=== PATIENT | male | born 1945 | race Two or more races ===

== ENCOUNTER → 2017-09-16 01:13 | Outpatient (CLI) | payer MEDICARE, SELFPAY ==
--- NOTE | 2017-09-16 11:40 | DI.REPORT_ITS ---
SYMPTOM/DIAGNOSIS: PAIN X 5 MONTHS S/P FALL RIGHT SHOULDER MRI: The study was carried out according to the usual protocol. There is a small anterior rim rent-type tear of the distal supraspinatus tendon. This is associated with a small amount of subacromial and subdeltoid bursitis. The infraspinatus is unremarkable. There is mild subscapularis tendinopathy. A moderate amount of fluid is present in the subcoracoid bursa which might be secondary to subscapularis tendinopathy from subcoracoid impingement or be related to the presence of glenohumeral joint effusion. The teres minor is unremarkable. The biceps appears intact. The muscles are unremarkable. A small quantity of glenohumeral effusion is present. There is a small amount of fluid in the subcoracoid bursa which may be secondary to subscapularis tendinopathy from subcoracoid impingement or be related to the presence of glenohumeral joint effusion. The cartilage is unremarkable. The glenoid labrum is unremarkable. Note is made of mild degenerative changes in the acromioclavicular joint with joint capsular hypertrophy impinging slightly upon the musculotendinous junction of the supraspinatus. SUMMARY: A small amount of anterior rim rent-type tear is noted involving the distal supraspinatus tendon. There is an associated small amount of subacromial and subdeltoid bursitis. Note is made of mild degenerative changes in the acromioclavicular joint with joint capsular hypertrophy impinging slightly on the musculotendinous junction of the supraspinatus tendon. A small glenohumeral joint effusion is present. There is a moderate amount of fluid present in the subcoracoid bursa which might be secondary to subscapularis tendinopathy from subcoracoid impingement or be related to the presence of a glenohumeral joint effusion.
--- NOTE | 2017-09-16 17:04 | DI.VRAD_ITS ---
EXAM: MR Right Upper Extremity Without Intravenous Contrast, Shoulder EXAM DATE/TIME: 09/16/2017 11:37 AM CLINICAL HISTORY: 72 years old, male; Pain; Shoulder; Right; Patient HX: Pain x's 5 months S/P fall TECHNIQUE: Multiplanar magnetic resonance images of the right shoulder without intravenous contrast. COMPARISON: No relevant prior studies available. FINDINGS: TENDONS: SUPRASPINATUS: There is a small anterior rim rent-type tear of the distal supraspinatus tendon as seen on image 5 of series 9 and image 7 of series 6. This is associated with a small amount of subacromial and subdeltoid bursitis. INFRASPINATUS: Unremarkable. SUBSCAPULARIS: Mild subscapularis tendinopathy. There is a moderate amount of fluid present in the subcoracoid bursa, which might be secondary to subscapularis tendinopathy from subcoracoid impingement or be related to the presence of the glenohumeral joint effusion. TERES MINOR: Unremarkable. BICEPS BRACHII, LONG HEAD: Unremarkable. LIGAMENTS: GLENOHUMERAL: Unremarkable. MUSCLES: Unremarkable. FLUID: A small glenohumeral joint effusion is present. There is a moderate amount of fluid present in the subcoracoid bursa, which might be secondary to subscapularis tendinopathy from subcoracoid impingement or be related to the presence of the glenohumeral joint effusion. CARTILAGE: Unremarkable. GLENOID LABRUM: Unremarkable. No tear. BONES/JOINTS: Mild degenerative change is seen in the acromioclavicular joint with joint capsular hypertrophy impinging slightly upon the musculotendinous junction of the supraspinatus, seen on image 5 of series 8. IMPRESSION: 1. There is a small anterior rim rent-type tear of the distal supraspinatus tendon as seen on image 5 of series 9 and image 7 of series 6. This is associated with a small amount of subacromial and subdeltoid bursitis. 2. Mild degenerative change is seen in the acromioclavicular joint with joint capsular hypertrophy impinging slightly upon the musculotendinous junction of the supraspinatus, seen on image 5 of series 8. 3. A small glenohumeral joint effusion is present. 4. There is a moderate amount of fluid present in the subcoracoid bursa, which might be secondary to subscapularis tendinopathy from subcoracoid impingement or be related to the presence of the glenohumeral joint effusion. Dictated and Authenticated by: Marlo Graham MD. Ordering:EMMA VICTOR MD
== END ==
PROVIDERS: PCP General Practice; Visit Provider General Practice
DX: S43.421D Sprain of right rotator cuff capsule, subsequent encounter (principal); M25.411 Effusion, right shoulder; M19.011 Primary osteoarthritis, right shoulder; M75.51 Bursitis of right shoulder
CPT/HCPCS: 73221

== ENCOUNTER 2018-07-27 09:47 | Outpatient (CLI) | payer MEDICARE, SELFPAY ==
[2018-07-27 11:27] LABS: Anion Gap 10.1 mmol/L (3-11); BUN 28 mg/dL (7-18); CO2 27.9 mmol/L (21.0-32.0); CREATININE 1.06 mg/dL (0.70-1.30); Chloride 106 mmol/L (98-107); Glucose 98 mg/dL (70-100); Potassium 4.1 mmol/L (3.5-5.1); Sodium 144 mmol/L (136-145)
== END 2018-07-27 10:07 ==
PROVIDERS: PCP General Practice; Visit Provider General Practice
DX: I10 Essential (primary) hypertension (principal); R79.89 Other specified abnormal findings of blood chemistry
CPT/HCPCS: 36415; 80051; 82947; 84520; 82565

== ENCOUNTER → 2021-05-07 08:50 | Outpatient (BNVA) | payer MEDICARE, SELFPAY | PROVIDERS: PCP Family Medicine; Referring Provider General Practice; Visit Provider Urology | DX: N40.1 Benign prostatic hyperplasia with lower urinary tract symptoms (principal); R35.1 Nocturia; R68.82 Decreased libido; N52.9 Male erectile dysfunction, unspecified; M62.89 Other specified disorders of muscle | CPT/HCPCS: 51798; 99205 ==

== ENCOUNTER → 2021-06-25 07:56 | Outpatient (BNVA) | payer MEDICARE, SELFPAY | PROVIDERS: PCP Family Medicine; Referring Provider Family Medicine; Visit Provider Urology | DX: N52.9 Male erectile dysfunction, unspecified (principal); R68.82 Decreased libido | CPT/HCPCS: 99214 ==

== ENCOUNTER → 2021-11-28 08:58 | Outpatient (BNVA) | payer MEDICARE, SELFPAY | PROVIDERS: PCP Family Medicine; Referring Provider Family Medicine; Visit Provider Urology | DX: R68.82 Decreased libido (principal) | CPT/HCPCS: 99442 ==

== ENCOUNTER → 2022-03-04 08:59 | Outpatient (BNVA) | payer MEDICARE, SELFPAY | PROVIDERS: PCP Family Medicine; Referring Provider Family Medicine; Visit Provider Urology | DX: N52.9 Male erectile dysfunction, unspecified (principal); E29.1 Testicular hypofunction | CPT/HCPCS: 99443 ==

== ENCOUNTER 2022-05-06 07:49 | Outpatient (CLI) | payer MEDICARE, SELFPAY | END 2022-05-06 07:50 | disposition home or self-care (01) | LOC: DI.CARD 07:50 | PROVIDERS: PCP Family Medicine; Visit Provider Internal Medicine Cardiovascular Disease | CPT/HCPCS: 93010 ==

== ENCOUNTER → 2022-05-06 11:02 | Outpatient (BNVA) | payer MEDICARE, SELFPAY | PROVIDERS: PCP Family Medicine; Referring Provider Family Medicine; Visit Provider Internal Medicine Cardiovascular Disease | DX: Z01.810 Encounter for preprocedural cardiovascular examination (principal); Z95.2 Presence of prosthetic heart valve | CPT/HCPCS: 93005; 99203; 99213 ==

== ENCOUNTER 2022-06-04 07:17 | Outpatient (CLI) | payer MEDICARE, SELFPAY ==
--- NOTE | 2022-06-04 06:00 | DI.RAD_ITS ---
Exam(s) XR PAIN CLINIC LUMBAR SP 2V EXAM: XR PAIN CLINIC LUMBAR SP 2V CLINICAL HISTORY: Dx: Lumbar Spondylosis. TECHNIQUE: Fluoroscopy was provided for the referring physician for guidance with performing pain cl inic injection procedure. COMPARISON: No exams were available for comparison FINDINGS: Please see procedure note for details. Fluoro time: 73 seconds RADIATION DOSE DELIVERED: evelyne Alonzo=15.01 mGy
[2022-06-04 07:25] VITALS: BP 132/75; PULSE 62; RESP 20; TEMP 36.6; O2SAT 96
[2022-06-04] MEDS: fentaNYL 100 MCG/2 ML VIAL IVP ×2 (08:20→08:29)
[2022-06-04] MEDS: Midazolam 2 MG/2 ML VIAL IVP (08:24)
[2022-06-04] MEDS: Lactated Ringers 500 ML 80 ML IV (08:25)
[2022-06-04 09:05] VITALS: BP 137/83; PULSE 68; RESP 16; O2SAT 97
--- NOTE | 2022-06-04 09:06 | PDOC.PAIN ---
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 The low back pain has returned. PROCEDURE: Radiofrequency Ablation of medial branches - Bilateral L3 L4 L5 and lateral branches of bilateral S1. Bandar De Souza was brought into the fluoroscopy suite and positioned into the prone position on the fluoroscopy table and allowed to adjust to a position of comfort. A grounding pad was placed on the left abdomen. The lumbar region was widely prepped with a chloraprep solution, allowed to air dry and draped in standard sterile surgical fashion. Local anesthesia was provided by 4 mL of 2 % Lidocaine delivered with a 25g needle. A 17g 100 mm radiofrequency introducer needle was placed to the planned anatomic targets guided with intermittent fluoroscopy with a perpendicular approach to terminally place at the junction of the superior articular process and the transverse process of the bilateral L4 L5, the base of the sacral ala on the bilateral for the L5 medial branch nerve and the area between base of the sacral ala to the S1 foramen bilaterally. The stylets were removed and radiofrequency probes with a 4mm active tip were then inserted. Needle tip position of the probes was verified in the AP, oblique, and lateral views. At each site, the medial branch nerve was stimulated at 2 Hz to a maximum 1-2 volts determined to finalize safe needle and electrode placement. The patient was awake and responsive during this portion of the procedure. Each target was anesthetized with 1-2 mL of 2 % Lidocaine for anesthesia for lesioning and then each target was lesioned at 80 degrees Celsius for 2 minutes and 30 seconds. Tissue impedences were noted to be between 250 and 500 Ohms. I then injected 1/4 cc of Depomedrol (40 mg/cc) followed by 1 cc of 0.5% Bupivacaine to each segmental sensory nerve. Electrodes and needles were then removed and bandages placed over the needle placement sites, the patient then returned to the supine position on a stretcher and transported to the recovery room without hemodynamic, neurologic, or allergic reactions. Fluoroscopic images were printed for hard copy recording and digitally archived. POST PROCEDURE EVALUATION: IMPRESSION: 1. Summary of procedure. Medication given is documented in the MAR. 2. The patient will be contacted in 1-3 weeks 3. Estimated Blood Loss: <5 mls 4. Fluoroscopy time: Documented in the EMR. Follow up plans and appointments were discussed with the Bandar . Post procedure instruction was given as documented in nursing documentation and having met discharge criteria, Bandar was discharged from the [facility]. COMMENTS: No apparent complications. Post-procedure pain: VAS= 0/10. If he receives at least 50% pain improvement and/or 50% functional improvement for at least 6 months, this procedure can be repeated. F/U with our office as needed. Je Gonzalez DO, MPH [facility]-Pain Management [facility]
[2022-06-04] MEDS: Bupivacaine 0.5% Pres-Free 10 ML VIAL IJ (09:12)
[2022-06-04] MEDS: Lidocaine 2% Pres-Free 5 ML VIAL IJ (09:18)
[2022-06-04] MEDS: methylPREDNISolone ACETATE 40 MG/ML VIAL IJ (09:18)
== END 2022-06-04 07:18 | disposition home or self-care (01) ==
LOC: PC 07:17
PROVIDERS: PCP Family Medicine; Visit Provider Preventive Medicine Occupational Medicine
DX: M47.817 Spondylosis without myelopathy or radiculopathy, lumbosacral region (principal); M54.50 Low back pain, unspecified
CPT/HCPCS: 64635; 64636; 72100; J1030; J2250; J3010

== ENCOUNTER → 2023-01-15 01:19 | Outpatient (CLI) | payer MEDICARE, SELFPAY ==
--- NOTE | 2023-01-15 09:05 | DI.MRI_ITS ---
Exam(s) MR LUMBAR SPINE WO EXAM: MR LUMBAR SPINE WO CLINICAL HISTORY: Worsening bilateral lower extremity claudication,lumbar spinal stenosis,m48. TECHNIQUE: Multiplanar multisequence MRI of the Lumbar spine was performed. COMPARISON: MR MRI - LUMBAR SPINE WO CONTRAST from 09/15/2016 FINDINGS: Bones: The last intervertebral disc space is designated the L5/S1 level for the numbering purpose of this ex amination. The vertebral body heights are well maintained. Alignment: Unremarkable. The marrow signal characteristics are unremarkable. Cord: The conus tip ends at the T12 level. It is of normal size and signal intensity. T12-L1: No focal disc herniation is present. No central spinal canal stenosis.No neural foraminal st enosis. L1-2:Mild loss of disc height. No focal disc herniation is present. No central spinal canal stenosi s.No neural foraminal stenosis. L2-3:Mild disc bulging and small endplate osteophytes.. No focal disc herniation is present. No cent ral spinal canal stenosis.Left neural foraminal stenosis. L3-4: :Broad-based disc osteophytes. Facet degenerative changes and prominent ligamentous hypertrophy causing severe central canal stenosis. Finding similar to prior. No focal disc herniation is present . Moderate left neural foraminal stenosis. L4-5: Small endplate osteophytes eccentric toward the right causing moderate right neural foraminal n arrowing. Tiny right central disc protrusion without definite nerve root impingement. The facet degen erative changes and ligamentous hypertrophy combining to produce mild central canal stenosis. This ap pears worse than the prior exam. L5-S1: Severe loss of disc height. Broad-based disc osteophytes. Mild facet degenerative changes. No focal disc herniation is present. No central spinal canal stenosis.Moderate bilateral neural forami nal stenosis. The visualized SI joints and sacrum are unremarkable. Soft tissues: The paraspinal soft tissues are unremarkable. IMPRESSION: Stable severe central canal stenosis at L3-4 secondary to combination of degenerative changes. Mild central canal stenosis now present at L4-5. Tiny right paracentral disc protrusion at this level without definite nerve root impingement.. Multilevel neural foraminal narrowing. DATA REPOSITORY:
== END ==
PROVIDERS: PCP Family Medicine; Visit Provider Preventive Medicine Occupational Medicine
DX: M48.061 Spinal stenosis, lumbar region without neurogenic claudication (principal)
CPT/HCPCS: 72148

== ENCOUNTER 2023-02-26 10:53 | Outpatient (CLI) | payer MEDICARE, SELFPAY ==
[2023-02-26 11:03] VITALS: BP 161/85; PULSE 69; RESP 20; TEMP 36.7; O2SAT 97
--- NOTE | 2023-02-26 11:30 | DI.RAD_ITS ---
Exam(s) XR PAIN CLINIC LUMBAR SP 2V EXAM: XR PAIN CLINIC LUMBAR SP 2V CLINICAL HISTORY: Dx: Lumbar Radiculopathy. TECHNIQUE: Fluoroscopy was provided for the referring physician for guidance with performing pain cl inic injection procedure. COMPARISON: No exams were available for comparison FINDINGS: Please see procedure note for details. Fluoro time: 14.8 seconds RADIATION DOSE DELIVERED: Ka,r=4.11 mGy
[2023-02-26 11:32] VITALS: BP 163/78; PULSE 66; RESP 19; O2SAT 100
[2023-02-26] MEDS: methylPREDNISolone ACETATE 80 MG/ML VIAL IJ (11:34)
[2023-02-26] MEDS: Omnipaque 240 MG/ML 50 ML BTL IJ (11:34)
[2023-02-26] MEDS: Epidural Tray 1 EACH MC (11:38)
--- NOTE | 2023-02-26 13:18 | PDOC.PAIN ---
Date of service: 02/26/23 Time of Service: 12:00 Pain Managment Procedure Note Procedure Note Procedure Note: PROCEDURE NOTE LUMBAR EPIDURAL STEROID INJECTION Date of Service: February 26, 2023 Patient:?Bandar De Souza? Provider: Je Carson DO, MPH Bandar De Souza has been referred to the [facility] for a lumbar epidural steroid injection. Pre-operative diagnosis: Lumbosacral Radiculopathy Post-operative diagnosis: Same Pre-Procedure Pain: VAS= 10 /10 Comments: I previously evaluated him in the office. His symptoms are the same. Bandar was interviewed and the medical record was reviewed.? There were no medical, pharmacologic, radiographic or other structural contraindications to attempting fluoroscopically guided Lumbar epidural steroid injection.? Risks, potential side effects, indications, and potential benefits of the procedure were reviewed with Bandar.? Questions and concerns were addressed.? After it was clear that Bandar was fully informed about the procedure, the printed consent form was signed by the patient and myself.? Bandar was placed in the prone position on the fluoroscopy table and automated blood pressure cuff and pulse oximeter applied. The skin entry point for entering/approaching the epidural space for the lumbar epidural steroid injection was marked. Following thorough chlorhexadine preparation of the skin and draping and 1% lidocaine infiltration of the skin entry point and subcutaneous tissues, an 18 gauge Touhy needle was placed and advanced under fluoroscopic guidance and with loss of resistance technique into the L5-S1 epidural space. Needle tip placement and depth were aided and confirmed by fluoroscopy. There was no paresthesia or return of blood or CSF through the needle. 1 mls of Omnipaque 240 was injected with clear epidural spread confirmed with fluoroscopy. 80 mg of Depo-Medrol was? injected. This was followed by 1 ml of preservative-free normal saline to flush the steroid out of the needle. There was no unusual discomfort expressed by Bandar. The needle was withdrawn without difficulty. (49 mls of Omnipaque was wasted) Bandar was observed and was without hemodynamic, neurologic, or allergic reactions.? Fluoroscopic images were digitally archived. Bandar's vital signs were stable throughout the procedure and were as recorded in nursing records. Follow up plans and appointments were discussed with Bandar. Post procedure instruction was given as documented in nursing records and having met discharge criteria Bandar was discharged from the [facility] Management Center. COMMENTS: No apparent complications. Post-procedure pain: VAS= 0/10. Bandar to contact [facility] as needed. If at least 50% improvement in pain and/or function for at least 3 months is achieved, this procedure can be repeated. I personally performed this entire procedure. JE CARSON DO, MPH ABP[employer]-subspecialty board certification in Pain Medicine [facility]-Center for Pain Management
== END 2023-02-26 10:54 | disposition home or self-care (01) ==
LOC: PC 10:53
PROVIDERS: PCP Family Medicine; Visit Provider Preventive Medicine Occupational Medicine
DX: M54.50 Low back pain, unspecified (principal); M54.17 Radiculopathy, lumbosacral region
CPT/HCPCS: 123; 62323; 72100; 00123; J1040; Q9967

== ENCOUNTER 2023-05-05 08:02 | Outpatient (CLI) | payer MEDICARE, SELFPAY ==
--- NOTE | 2023-05-05 08:00 | RT.EKG_ITS ---
APPROVED REPORT Exam: Resting ECG Reason for Exam: HTN, s/p AVR Patient Location: O HR:59 bpm ECG Measurements Heart Rate 59 AXIS WI [id number] P [id number] QRSd 114 QRS -44 QT 459 T 74 QTc 455 Conclusion Sinus rhythm with atrial premature beats Artifact/poor baseline Left ventricular hypertrophy...multiple LVH criteria Left axis,consider LAFB
== END 2023-05-05 08:03 | disposition home or self-care (01) ==
LOC: DI.CARD 08:03
PROVIDERS: PCP Family Medicine; Visit Provider Internal Medicine Cardiovascular Disease
DX: Z95.2 Presence of prosthetic heart valve (principal)
CPT/HCPCS: 93010

== ENCOUNTER → 2023-05-05 10:47 | Outpatient (BNVA) | payer MEDICARE, SELFPAY | PROVIDERS: PCP Family Medicine; Referring Provider Family Medicine; Visit Provider Internal Medicine Cardiovascular Disease | DX: I51.7 Cardiomegaly (principal); Z95.2 Presence of prosthetic heart valve | CPT/HCPCS: 93005; 99213 ==

== ENCOUNTER 2023-05-06 08:08 | Outpatient (CLI) | payer MEDICARE, SELFPAY ==
--- NOTE | 2023-05-06 06:00 | DI.RAD_ITS ---
Exam(s) XR PAIN CLINIC LUMBAR SP 2V EXAM: XR PAIN CLINIC LUMBAR SP 2V CLINICAL HISTORY: DX: Lumbar spondylosis. TECHNIQUE: Fluoroscopy was provided for the referring physician for guidance with performing pain cl inic injection procedure. COMPARISON: No exams were available for comparison FINDINGS: Please see procedure note for details. Fluoro time: 65.6 seconds RADIATION DOSE DELIVERED: evelyne Alonzo=14.58 mGy
[2023-05-06 08:30] VITALS: BP 155/86; PULSE 73; RESP 20; TEMP 36.9; O2SAT 97
[2023-05-06] MEDS: Midazolam 2 MG/2 ML VIAL IVP (09:15)
[2023-05-06] MEDS: fentaNYL 100 MCG/2 ML VIAL IVP (09:15)
--- NOTE | 2023-05-06 09:50 | PDOC.PAIN_ITS ---
Date of service: 05/06/23 Time of Service: 09:50 Pain Managment Procedure Note Procedure Note Procedure Note: PROCEDURE NOTE BILATERAL LUMBAR RADIOFREQUENCY ABLATION Date of Service: May 06, 2023 Patient:? Bandar De Souza? Provider:? Je Carson DO, MPH Bandar De Souza has been referred to the [facility] for Bilateral Lumbar Radiofrequency Ablation with the Light Chaser Animations Machine.? Pre Operative Diagnosis: Lumbosacral Spondylosis without Myelopathy Post Operative Diagnosis: Same Pre procedure pain; VAS= 10/10 with activities Comments: He has had this procedure numerous times. His last RFA gave him >9 months of >50% pain relief. PROCEDURE: Radiofrequency Ablation of medial branches - bilateral L3, L4, L5 and lateral branches of bilateral S1. Bandar?was interviewed and the medical record was reviewed.? There were no medical, pharmacologic, radiographic or other structural contraindications to attempting fluoroscopically guided BILATERAL Lumbar Radiofrequency Ablation.?Risks and expected side effects as well as potential benefit of the procedure were reviewed with Bandar, and the patient's voiced concerns were addressed.? The printed consent form was signed.? Standard time-out procedure was performed. Bandar was brought into the fluoroscopy suite and positioned into the prone position on the fluoroscopy table and allowed to adjust to a position of comfort. A grounding pad was placed on the left abdomen. The sterile field was prepared using chlorhexidine preparation of the skin and sterile draping. Local anesthesia superficial and deep was provided by local infiltration of 2% lidocaine. A 17g 100 mm radiofrequency introducer needle was placed to the planned anatomic targets guided with intermittent fluoroscopy with a perpendicular approach to terminally place at the junction of the superior articular process and the transverse process of the bilateral L4, L5, the base of the sacral ala on the bilateral for the L5 medial branch nerve and the area between base of the sacral ala to the S1 foramen bilaterally. The stylets were removed and radiofrequency probes with a 4mm active tip were then inserted. Needle tip position of the probes was verified in the AP, oblique, and lateral views. At each site, the medial branch nerve was stimulated at 2 Hz to a maximum 1-2 volts determined to finalize safe needle and electrode placement. The patient was awake and responsive during this portion of the procedure. Each target was anesthetized with 1-2 mL of 2 % Lidocaine for anesthesia for lesioning and then each target was lesioned at 80 degrees Celsius for 2 minutes and 30 seconds. Tissue impedances were noted to be between 250 and 500 Ohms. I next injected 1/4 cc of Depomedrol (40 mg/cc) followed by 1 cc of 0.5% Bupivacaine. There was no unusual discomfort expressed by Bandar. The needles were withdrawn without difficulty and bandages placed over the needle placement sites, the patient was observed and was without hemodynamic, neurologic, or allergic reactions. Fluoroscopic images were digitally archived. POST PROCEDURE EVALUATION: IMPRESSION: 1. Summary of procedure. Medication given is documented in the MAR. 2. Follow up plan: Bandar to contact [facility] as needed.?This procedure may be repeated if the patient achieves at least 50% improvement in pain/function for at least 6 months. 3. Estimated Blood Loss: <5 mls 4. Fluoroscopy time: Documented in the EMR. Follow up plans and appointments were discussed with the Bandar. Post procedure instruction was given as documented in nursing documentation and having met discharge criteria, Bandar was discharged from the [facility]. COMMENTS: No apparent complications. Post-procedure pain: VAS= 1/10. I personally completed the entire procedure. JE CARSON DO, MPH [employer] - Subspecialty board certification in Pain Medicine [facility] [facility]
[2023-05-06] MEDS: Nerve Block Tray 1 EACH MC (09:57)
[2023-05-06] MEDS: Bupivacaine 0.5% Pres-Free 10 ML VIAL IJ (09:57)
[2023-05-06] MEDS: Lidocaine 2% Pres-Free 5 ML VIAL IJ (09:58)
[2023-05-06] MEDS: methylPREDNISolone ACETATE 40 MG/ML VIAL IJ (09:58)
[2023-05-06] MEDS: Lactated Ringers 500 ML 80 ML IV (09:59)
[2023-05-06 10:02] VITALS: BP 148/77; PULSE 65; RESP 14; O2SAT 97
== END 2023-05-06 08:09 | disposition home or self-care (01) ==
LOC: PC 08:08
PROVIDERS: PCP Family Medicine; Visit Provider Preventive Medicine Occupational Medicine
DX: M54.50 Low back pain, unspecified (principal); M47.817 Spondylosis without myelopathy or radiculopathy, lumbosacral region
CPT/HCPCS: 00123; 64635; 64636; 72100; J0665; J1030; J2250; J3010

== ENCOUNTER 2024-01-14 09:44 | Outpatient (CLI) | payer MEDICARE, SELFPAY ==
--- NOTE | 2024-01-14 06:45 | DI.RAD_ITS ---
Exam(s) XR PAIN CLINIC FLUORO JOINT IN EXAM: XR PAIN CLINIC FLUORO JOINT IN CLINICAL HISTORY: Dx: Right Knee Osteoarthritis TECHNIQUE: 2D and realtime digital imaging was performed. CONTRAST MATERIAL: Refer to procedure report. COMPARISON: No exams were available for comparison FINDINGS: Fluoroscopy was provided for Dr. Gonzalez during the performance of a right genicular nerve block. Plea se refer to the procedure report for complete details. Ka,r=3.53 mGy IMPRESSION: RADIATION DOSE DELIVERED: 0.0 0.0 0
[2024-01-14 09:57] VITALS: BP 116/69; PULSE 67; RESP 18; TEMP 36.6; O2SAT 98
[2024-01-14 10:21] VITALS: O2SAT 97
[2024-01-14 10:30] VITALS: O2SAT 100
--- NOTE | 2024-01-14 10:42 | PDOC.PAIN ---
Date of service: 01/14/24 Time of Service: 10:42 Pain Managment Procedure Note Procedure Note Procedure Note: PROCEDURE NOTE RIGHT GENICULAR NERVE BLOCKS Date of Service: January 14, 2024 Patient: Bandar De Souza Provider: Je Carson DO, MPH Bandar De Souza has been referred to the Pain Management Center for Right genicular nerve block. Pre-operative diagnosis: Pain in right knee M25.561 Post-operative diagnosis: Same Pre-Procedure Pain: VAS=6/10 COMMENTS: I previously evaluated him in the clinic. His symptoms are unchanged. He is status-post right knee TKA. PROCEDURE: 1. Block of the Superolateral genicular branch from the vastus lateralis 2. Block of the Superomedial genicular branch from the vastus medialis 3. Block of the Inferomedial genicular branch from the saphenous nerve 4. Block of the Terminal branch of the nerve vastus intermedius Bandar was interviewed and the medical record reviewed. There were no medical, pharmacologic, radiographic or other structural contraindications to attempting fluoroscopically guided Right genicular nerve block. Risks and potential side effects as well as potential benefit of the procedure were reviewed with Bandar De Souza , and the patient's voiced concerns were addressed. After I believed that the patient was completely informed, the printed consent form was signed. Standard time-out procedure was performed. After a thorough Chlorhexadine preparation of the skin and draping the skin entry points for approaching Right superolateral genicular nerve, the superomedial genicular nerve, nerve of the vastus intermedius and the inferomedial genicular was identified under the most advantageous fluoroscopic view and marked. Next, 3.5 25G spinal needle was advanced to os at the location of the specific nerve root using fluoroscopic guidance. Next 0.5 cc of 0.5% Bupivacain was injected at each site. There was no unusual discomfort expressed by Bandar. The needles were withdrawn without difficulty. Bandar was observed and was without hemodynamic, neurologic, or allergic reactions.? Fluoroscopic images were digitally archived. Bandar's vital signs were stable throughout the procedure and were as recorded in the docflowsheet by the nursing staff. If given, dosages of intravenous drugs for anxiolysis and analgesia were documented in MAR. Follow up plans and appointments were discussed. Bandar was instructed to keep careful note of how the usual pain was modified by these injections. Specifically, Bandar was asked to keep a pain diary for the next 4 hours using a numeric pain scale of 0-10 and report these results. Post procedure instruction was given as documented in nursing documentation and having met discharge criteria, Bandar was discharged from the Pain Management Center. COMMENTS: No apparent complications. Post-procedure pain: VAS= 0/10. Bandar will call back with 0-4 hour post-procedure pain scores. I personally completed the entire procedure. JE CARSON DO, MPH [employer] - Subspecialty board certification in Pain Medicine [facility] Management
[2024-01-14] MEDS: Omnipaque 240 MG/ML 50 ML BTL IJ (10:48)
[2024-01-14] MEDS: Bupivacaine 0.5% Pres-Free 10 ML VIAL IJ (10:48)
== END 2024-01-14 09:45 | disposition home or self-care (01) ==
LOC: PC 09:44
PROVIDERS: PCP Family Medicine; Visit Provider Preventive Medicine Occupational Medicine
DX: M25.561 Pain in right knee (principal); M17.11 Unilateral primary osteoarthritis, right knee
CPT/HCPCS: 64454; 77002; J0665; Q9967

== ENCOUNTER 2024-01-28 07:04 | Outpatient (CLI) | payer MEDICARE, SELFPAY ==
[2024-01-28] VITALS (13 sets, daily range): BP systolic 109–142; BP diastolic 60–79; PULSE 52–74; RESP 8–20; TEMP 36.7; O2SAT 87–100
[2024-01-28] MEDS: fentaNYL 100 MCG/2 ML VIAL IVP ×3 (08:25→08:35)
[2024-01-28] MEDS: Midazolam 2 MG/2 ML VIAL IVP (08:25)
[2024-01-28] MEDS: methylPREDNISolone ACETATE 40 MG/ML VIAL IJ (09:08)
[2024-01-28] MEDS: Bupivacaine 0.5% Pres-Free 10 ML VIAL IJ (09:08)
[2024-01-28] MEDS: Nerve Block Tray 1 EACH MC (09:09)
[2024-01-28] MEDS: Lidocaine 2% Multi-Dose 20 ML VIAL IJ (09:09)
--- NOTE | 2024-01-28 09:51 | PDOC.PAIN ---
Date of service: 01/28/24 Time of Service: 09:00 Pain Managment Procedure Note Procedure Note Procedure Note: PROCEDURE NOTE RIGHT GENICULAR NERVE RADIOFREQUENCY ABLATION Date of Service: January 28, 2024 Patient: Bandar De Souza Provider: Kayleigh Carson DO, MPH Bandar De Souza has been [facility] for Right genicular nerve radiofrequency ablation with the [employer] machine. Pre-operative diagnosis: Pain in right knee M25.561 Post-operative diagnosis: Same Pre-Procedure Pain: VAS=7/10 Comments: Previous genicular nerve blocks to the Right knee. PROCEDURE: 1. Superolateral genicular branch from the vastus lateralis 2. Superomedial genicular branch from the vastus medialis 3. Inferomedial genicular branch from the saphenous nerve 4. (Optional) Terminal branch of the nerve vastus intermedius Bandar was interviewed and the medical record reviewed. There were no medical, pharmacologic, radiographic or other structural contraindications to attempting fluoroscopically guided Right genicular nerve radiofrequency ablation. Risks and potential side effects as well as potential benefit of the procedure were reviewed with Bandar De Souza , and the patient's voiced concerns were addressed. After I believed that the patient was completely informed, the printed consent form was signed. Standard time-out procedure was performed. Bandar DeS ouza was brought into brought to the procedure room and placed on the fluoroscopy table in a comfortable supine position and automated blood pressure cuff and pulse oximeter applied. A grounding pad was placed on the right ankle. The place for needle placement was obtained by manual palpation with radiographic confirmation. The skin entry points for approaching Right superolateral genicular nerve, the superomedial genicular nerve, nerve of the vastus intermedius and the inferomedial genicular was identified under the most advantageous fluoroscopic view and marked. Following thorough Chlorhexadine preparation of the skin and draping, 1% lidocaine infiltration of the skin entry point and subcutaneous tissues was accomplished using a 1.5 25G needle. Next, the 17G 50 mm radiofrequency cannula needle with a 4mm active tip was advanced to os at the location of the specific nerve roots (4) using fluoroscopic guidance. Next, motor testing was performed and no abnormal findings were found. Next, 1 cc of 2% Lidocaine was injected at each site after negative aspiration. The lesion was then created with 80 degrees Celsius for 2 minutes and 30 seconds each. 1/4 cc of Depo-Medrol (40 mg/cc) was then injected at each site followed by 1 cc of 0.5% Bupivacaine as the needle was withdrawn. There was no unusual discomfort expressed by Badnar. The needles were withdrawn without difficulty. Bandar was observed and was without hemodynamic, neurologic, or allergic reactions.? Fluoroscopic images were digitally archived. Bandar's vital signs were stable throughout the procedure and were as recorded in the docflowsheet by the nursing staff. If given, dosages of intravenous drugs for anxiolysis and analgesia were documented in MAR. POST PROCEDURE EVALUATION: IMPRESSION: 1. Medication given is documented in the MAR 2. Follow up plan: Bandar to contact [facility] as needed. This procedure may be repeated if the patient achieves at least 50% improvement in pain and/or function for at least 6 months. 3. Estimated Blood Loss: <5ml 4. Fluoroscopy time: Documented in the EMR Follow up plans and appointments were discussed with Bandar. Post procedure instruction was given as documented in nursing documentation and having met discharge criteria, Bandar was [facility] from the [facility]. This advanced procedure uses cooled radiofrequency energy to safely target the sensory nerves responsible for sending pain signals.1 A radiofrequency generator transmits a small current of Radiofrequency energy through an insulated electrode, or probe, placed within tissue. Ionic heating, produced by the friction of charged molecules, thermally deactivates the nerves responsible for sending pain signals to the brain. Radiofrequency energy heats and cools the tissue at the site of pain. Unlike other Radiofrequency procedures, Coolief circulates water through the device while heating nervous tissue to create a larger treatment area, increasing the opportunity to help with pain. This combination targets the pain-transmitting nerves without excessive heating, leading to pain relief. COMMENTS: No apparent complications. Post-procedure pain: VAS= 2/10. Almaguer WJ1, Taran SJ, Roderick JG, Jaxson JG, Richie MARINO, Savanna PH, Mariusz JW. Radiofrequency treatment relieves chronic knee osteoarthritis pain: a double-blind randomized controlled trial. Pain. 2011 Apr;152(3):481-7. doi: 10.1016/j.pain.2010.09.029. Cordelia S1, Reese ON2, Molina Y3, ?zl?lerden P2, Ayaan U1, Dennis ?m?rl? I. Which one is more effective for the clinical treatment of chronic pain in knee osteoarthritis: radiofrequency neurotomy of the genicular nerves or intra-articular injection? Int J Rheum Dis. 2016 Sep 20. I personally completed the entire procedure. KAYLEIGH CARSON DO, MPH ABPM&R - Subspecialty board certification in Pain Medicine [facility]
--- NOTE | 2024-01-28 18:00 | DI.RAD_ITS ---
Exam(s) XR PAIN CLINIC FLUORO JOINT IN EXAM: XR PAIN CLINIC FLUORO JOINT IN CLINICAL HISTORY: DX: Right Knee Osteoarthritis TECHNIQUE: 2D and realtime digital imaging was performed. CONTRAST MATERIAL: Refer to procedure report. COMPARISON: No exams were available for comparison FINDINGS: Fluoroscopy was provided for Dr. Gonzalez during the performance of a right genicular nerve radiofrequen cy ablation. Please refer to the procedure report for complete details. Ka,r=4.48 mGy IMPRESSION: RADIATION DOSE DELIVERED: 0.0 0.0 0
== END 2024-01-28 14:48 | disposition home or self-care (01) ==
LOC: PC 07:04
PROVIDERS: PCP Family Medicine; Visit Provider Preventive Medicine Occupational Medicine
DX: M25.561 Pain in right knee (principal); M17.11 Unilateral primary osteoarthritis, right knee
CPT/HCPCS: 64624; 77002; J0665; J1010; J2003; J2250; J3010

== ENCOUNTER 2024-04-14 11:30 | Outpatient (CLI) | payer MEDICARE, SELFPAY ==
[2024-04-14] VITALS (14 sets, daily range): BP systolic 139–161; BP diastolic 57–95; PULSE 56–68; RESP 10–20; TEMP 36.8; O2SAT 94–98
[2024-04-14] MEDS: Midazolam 2 MG/2 ML VIAL IVP (13:00)
[2024-04-14] MEDS: fentaNYL 100 MCG/2 ML VIAL IVP ×2 (13:05→13:12)
[2024-04-14] MEDS: Lactated Ringers 500 ML 80 ML IV (13:13)
--- NOTE | 2024-04-14 13:35 | DI.RAD_ITS ---
Exam(s) XR PAIN CLINIC LUMBAR SP 2V EXAM: XR PAIN CLINIC LUMBAR SP 2V CLINICAL HISTORY: Dx: Lumbar Spondylosis. TECHNIQUE: Fluoroscopy was provided for the referring physician for guidance with performing pain cl inic injection procedure. COMPARISON: No exams were available for comparison FINDINGS: Please see procedure note for details. Fluoro time: 42 seconds RADIATION DOSE DELIVERED: evelyne Alonzo=9.48 mGy
[2024-04-14] MEDS: Bupivacaine 0.5% Pres-Free 10 ML VIAL IJ (13:38)
[2024-04-14] MEDS: Lidocaine 2% Multi-Dose 20 ML VIAL IJ (13:38)
[2024-04-14] MEDS: methylPREDNISolone ACETATE 40 MG/ML VIAL IJ (13:39)
[2024-04-14] MEDS: Nerve Block Tray 1 EACH MC (13:39)
--- NOTE | 2024-04-14 14:06 | PDOC.PAIN ---
Date of service: 04/14/24 Time of Service: 14:06 Pain Managment Procedure Note Procedure Note Procedure Note: PROCEDURE NOTE BILATERAL LUMBAR RADIOFREQUENCY ABLATION Date of Service: April 14, 2024 Patient:? Bandar De Souza? Provider:? Je Carson DO, MPH Bandar De Souza has been [facility] to the [facility] for Bilateral Lumbar Radiofrequency Ablation with the [employer] Machine.? 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 This pain has mostly returned. PROCEDURE: Radiofrequency Ablation of medial branches - bilateral L3, L4, L5 and lateral branches of bilateral S1. Bandar?was interviewed and the medical record was reviewed.? There were no medical, pharmacologic, radiographic or other structural contraindications to attempting fluoroscopically guided BILATERAL Lumbar Radiofrequency Ablation.?Risks and expected side effects as well as potential benefit of the procedure were reviewed with Bandar, and the patient's voiced concerns were addressed.? The printed consent form was signed.? Standard time-out procedure was performed. Bandar was brought into the fluoroscopy suite and positioned into the prone position on the fluoroscopy table and allowed to adjust to a position of comfort. A grounding pad was placed on the left abdomen. The sterile field was prepared using chlorhexidine preparation of the skin and sterile draping. Local anesthesia superficial and deep was provided by local infiltration of 2% lidocaine. A 17g 100 mm radiofrequency introducer needle was placed to the planned anatomic targets guided with intermittent fluoroscopy with a perpendicular approach to terminally place at the junction of the superior articular process and the transverse process of the bilateral L4, L5, the base of the sacral ala on the bilateral for the L5 medial branch nerve and the area between base of the sacral ala to the S1 foramen bilaterally. The stylets were removed and radiofrequency probes with a 4mm active tip were then inserted. Needle tip position of the probes was verified in the AP, oblique, and lateral views. At each site, the medial branch nerve was stimulated at 2 Hz to a maximum 1-2 volts determined to finalize safe needle and electrode placement. The patient was awake and responsive during this portion of the procedure. Each target was anesthetized with 1-2 mL of 2 % Lidocaine for anesthesia for lesioning and then each target was lesioned at 80 degrees Celsius for 2 minutes and 30 seconds. Tissue impedances were noted to be between 250 and 500 Ohms. There was no unusual discomfort expressed by Bandar. The needles were withdrawn without difficulty and bandages placed over the needle placement sites, the patient was observed and was without hemodynamic, neurologic, or allergic reactions. Fluoroscopic images were digitally archived. POST PROCEDURE EVALUATION: IMPRESSION: 1. Summary of procedure. Medication given is documented in the MAR. 2. Follow up plan: Bandar to contact [facility] needed.?This procedure may be repeated if the patient achieves at least 50% improvement in pain/function for at least 6 months. 3. Estimated Blood Loss: <5 mls 4. Fluoroscopy time: Documented in the EMR. Follow up plans and appointments were discussed with the Bandar. Post procedure instruction was given as documented in nursing documentation and having met discharge criteria, Bandar was discharged from the [facility]. This advanced procedure uses cooled radiofrequency energy to safely target the sensory nerves responsible for sending pain signals.1 A radiofrequency generator transmits a small current of Radiofrequency energy through an insulated electrode, or probe, placed within tissue. Ionic heating, produced by the friction of charged molecules, thermally deactivates the nerves responsible for sending pain signals to the brain. Radiofrequency energy heats and cools the tissue at the site of pain. Unlike other Radiofrequency procedures, Coolief circulates water through the device while heating nervous tissue to create a larger treatment area, increasing the opportunity to help with pain. This combination targets the pain-transmitting nerves without excessive heating, leading to pain relief. COMMENTS: No apparent complications. Post-procedure pain: VAS= 1/10. I personally completed the entire procedure. JE CARSON DO, MPH ABPM&R - Subspecialty board certification in Pain Medicine [facility] Coding Conscious Sedation used for procedure: Yes CPT Codes: Single Facet Joint, Lumbar/Sacral cool - 71399J (43756K18~G) bilateral Single Facet Joint, Lumbar/Sacral cool each add'l - 45130D (04207Q35~G) LT - LEFT SIDE, RT - RIGHT SIDE Moderate sedation; First 15 min - 55917 (84898) Additional Codes: Date of Service (15387) Date of service: 04/14/24
--- NOTE | 2024-04-14 14:09 | PDOC.PAIN2 ---
Review of Systems Medications/Allergies Allergies Allergy/AdvReac Type Severity Reaction Status Date / Time ibuprofen Allergy Intermediate diarrhea Verified 04/14/24 12:04 ketorolac Allergy Intermediate eye Verified 04/14/24 12:04 pressure and pain cefazolin AdvReac Intermediate Diarrhea Verified 04/14/24 12:04 Medications: Current Medications Bupivacaine HCl (Bupivacaine 0.5% Pres-Free 10 Ml Vial) 0 ml IJ DIRECTED DAQUAN Stop: 04/14/24 23:59 Last Admin: 04/14/24 13:38 Dose: 5 ml Bupivacaine HCl (Bupivacaine 0.5% Pres-Free 30 Ml Vial) 0 ml IJ DIRECTED DAQUAN Stop: 04/14/24 23:59 Fentanyl (Fentanyl 100 Mcg/2 Ml Vial) 0 mcg IVP DIRECTED DAQUAN Stop: 04/14/24 23:59 Last Admin: 04/14/24 13:12 Dose: 25 mcg Ringer's Solution () 500 mls @ 80 mls/hr IV INFUSION DAQUAN Stop: 04/14/24 23:59 Last Admin: 04/14/24 13:13 Dose: 80 mls/hr Lidocaine HCl (Lidocaine 2% Pres-Free 5 Ml Vial) 0 ml IJ DIRECTED DAQUAN Stop: 04/14/24 23:59 Lidocaine HCl (Lidocaine 2% Pres-Free 2 Ml Vial) 0 ml IJ DIRECTED DAQUAN Stop: 04/14/24 23:59 Lidocaine HCl (Lidocaine 2% Multi-Dose 20 Ml Vial) 20 ml IJ DIRECTED DAQUAN Stop: 04/14/24 23:59 Last Admin: 04/14/24 13:38 Dose: 15 ml Methylprednisolone Acetate (Methylprednisolone Acetate 40 Mg/Ml Vial) 0 mg IJ DIRECTED DAQUAN Stop: 04/14/24 23:59 Last Admin: 04/14/24 13:39 Dose: 80 mg Methylprednisolone Acetate (Methylprednisolone Acetate 80 Mg/Ml Vial) 0 mg IJ DIRECTED DAQUAN Stop: 04/14/24 23:59 Midazolam HCl (Midazolam 2 Mg/2 Ml Vial) 0 mg IVP DIRECTED DAQUAN Stop: 04/14/24 23:59 Last Admin: 04/14/24 13:00 Dose: 1 mg Miscellaneous (Nerve Block Tray) 1 each MC DIRECTED DAQUAN Stop: 04/14/24 23:59 Last Admin: 04/14/24 13:39 Dose: 1 each Sodium Chloride (Normal Saline Flush 10 Ml Syr) 0 ml IVP PRN PRN Stop: 04/14/24 23:59 Objective Exam Vitals and I&O: Vital Signs Temperature 36.8 C 04/14/24 12:17 Pulse 57 L 04/14/24 13:31 Pulse 58 L 04/14/24 13:31 Respiratory Rate 14 04/14/24 13:31 Blood Pressure 153/79 H 04/14/24 13:30 Blood Pressure Mean 106 04/14/24 13:30 Pulse Oximetry 95 04/14/24 13:31 Respiratory End-tidal CO2 9 04/14/24 13:30 Oxygen Delivery Method Room Air 04/14/24 12:17 Oxygen Flow Rate 0 04/14/24 12:17 Intake & Output 04/13/24 04/14/24 04/14/24 23:59 11:59 23:59 Weight 70.307 kg Ambulatory Orders ?Medication ?Instructions ?Recorded doxazosin 8 mg tablet 8 mg PO DAILY 05/07/21 famotidine 20 mg tablet 40 mg PO DAILY 05/07/21 amlodipine 5 mg tablet 5 mg PO DAILY 04/22/22 hydrochlorothiazide 12.5 mg tablet 12.5 mg PO DAILY 03/04/24 atorvastatin 20 mg tablet 20 mg PO DAILY 04/11/24 Assessment/Plan Assessment/Plan (1) Lumbosacral spondylosis without myelopathy: Assessment: Pre-procedure H&P The patient is here for a bilateral L3-L5 lumbar medial branch radiofrequency ablation No complications with sedation in the past. The plan is to use low doses of Fentanyl and Versed for this procedure Mallampati score: Class II Heart: RR&R Lungs: No wheezing and non-labored Skin: No issues at the areas of the proposed injection sites. Psych: No confusion. Alert and oriented Ok to proceed with the RFA completed with conscious sedation. Je Gonzalez DO, MPH ABPMR-Pain Management [facility]
== END 2024-04-14 11:31 | disposition home or self-care (01) ==
LOC: PC 11:30
PROVIDERS: PCP Family Medicine; Visit Provider Preventive Medicine Occupational Medicine
DX: M47.817 Spondylosis without myelopathy or radiculopathy, lumbosacral region (principal); M54.50 Low back pain, unspecified
CPT/HCPCS: 64635; 64636; 72100; J0665; J1010; J2003; J2250; J3010

== ENCOUNTER → 2024-05-03 10:44 | Outpatient (BNVA) | payer MEDICARE, SELFPAY | PROVIDERS: PCP Family Medicine; Visit Provider Internal Medicine Cardiovascular Disease | DX: Z95.2 Presence of prosthetic heart valve (principal) | CPT/HCPCS: 99213 ==

== ENCOUNTER 2024-05-27 00:14 | Outpatient (CLI) | payer MEDICARE, SELFPAY ==
--- NOTE | 2024-05-27 07:30 | DI.US_ITS ---
APPROVED REPORT EXAM: Comprehensive 2D, Doppler, and color-flow Echocardiogram Patient Location: Out-Patient A/C Tech: Marc Roper RDCS (AE) Indications: Check AVR Other Information Study Quality: Good Conclusion Normal left ventricular wall thickness and chamber size. Ejection fraction is 55 to 60%. Wall motio n is normal Normal right ventricular size and function Both atria are normal in size. Atrial septum is thin and hypermobile There is a bioprosthetic aortic valve. Peak gradient is 64, mean 38 mmHg. There is moderate aortic stenosis. Calculated aortic valve area is 1 cm??. There is trace aortic regurgitation Mitral annular calcification with mild regurgitation Mild tricuspid regurgitation. Estimated right ventricular systolic pressure is 24 mmHg Ascending aorta measures 3.89 cm Wall motion Left Ventricle The left ventricle is normal size. Left ventricular systolic function is normal. The left ventricular ejection fraction is within the normal range. There is normal left ventricular wall thickness. There is normal LV segmental wall motion. There is no ventricular septal defect visualized. LVEF is 55-60% . Right Ventricle The right ventricle is normal size. The right ventricular systolic function is normal. Atria The left atrium size is normal. The right atrium size is normal. 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 Aortic Valve Bioprosthetic aortic valve is present. Peak aortic valve gradient is 64 mmHg. mean aortic valve gradi ent is 38mmHg. Calculated AYESHA by the continuity equation is 1.0 cm2. Trace aortic regurgitation. Mitral Valve Moderate mitral annular calcification. No evidence of mitral valve stenosis. Mild mitral regurgitatio n. Tricuspid Valve The tricuspid valve is normal in structure. There is no tricuspid valve stenosis. Mild tricuspid regu rgitation. The RVSP is 24.0 mmHg. Pulmonic Valve The pulmonary valve is normal in structure. There is no pulmonic valvular stenosis. Mild pulmonic reg urgitation. Great Vessels The aortic root is normal in size. The ascending aorta is mildly dilated. Aortic arch is normal in ca liber. IVC is normal in size and collapses >50% with inspiration. Pericardium There is no pericardial effusion. 2D Dimensions IVSD d PLAX 0.91 cm M: 0.6-1.2 Ao Root d 3.13 cm M: 3.1 - 3.7 LVPW d PLAX 0.98 cm M: 0.6 - 1.2 Ao Asc Diam d 3.89 cm M: 2.6 - 3.4 LVID d PLAX 5.57 cm M: 4.2 - 5.8 LVDs 3.95 cm M: 2.5 - 4.0 LV EF Teichholz 55.2 % FS 29.05 % LV EDV (Teich) 151.7 mL LV ESV (Teich) 68.0 mL Stroke Vol Index (Teich) 45.73 M-Mode TAPSE 1.44 cm (M/F) >1.7 LV Volumes - Method of Disks (Wilks's) Single Plane 2D LV Volumes Biplane 2D LV Volumes LV EDV A4C 146.2 mL LV EDV BP 89.19 mL M: 62 - 150 LV ESV A4C 60.9 mL LV ESV BP 37.9 mL LVEF(%) A4C 58.3 % LVEF(%) BP 57.48 % M: 52 - 72 LV EDV A2C 44.1 mL LV EDV BP Index 48.47 mL/m2 M: 34 - 74 LV ESV A2C 20.2 mL SV BP LVEF(%) A2C 54.2 % SV Index LA Volume LA Length A4C 5.8 cm LA Length A2C LA Area A4C s 15.20 cm2 LA Area A2C s LA Vol A4C A-L 34.01 mL LA Vol A2C A-L LA Vol Biplane A-L LA Vol A4C MOD 34.4 mL LA Vol A2C MOD LA Vol BP MOD RA Volume RA Area A4C 11.4 cm2 RA ESV A4C (A-L) 26.2mL RA Vol/BSA A4C A-L RA Length A4C 4.2 cm RA ESV A4C (MOD) 23.8mL LV Diastology MV E Vmax 0.48 (0.4-1.3 m/s) MV A Vmax 0.85 (0.4-1.3 m/s) E/A Ratio 0.6 Aortic Valve AoV Vmax 4.21 m/s LVOT Vmax 1.27 m/s AoV Peak Grad 77.6 mmHg LVOT Peak Grad 6.5 mmHg AoV Area (Vmax) 0.97 cm2 LVOT VTI 0.334 m AoV VTI 1.108 m LVOT Mean Grad 3.6 mmHg AoV Mean Travis. 3.12 m/s LVOT SV 106.96 mL AoV Mean Grad 44.1 mmHg LVOT Diam s 2.00 cm AoV Area (VTI) 0.97 cm2 AV Regurg Peak Gr. 70.86 mmHg Velocity Ratio 0.30 AR Decel [place] 1.1m/sec2 AR DT 4209 msec AR PHT 1221 msec AR Vmax 4.59 m/s Mitral Valve MV DT 201 (160-240 msec) Tricuspid Valve RA Pressure 3.00 mmHg TR Vmax 2.29 m/s TR Peak Grad 21.0 mmHg RVSP (TR) 24.0 mmHg
== END 2024-05-27 00:34 ==
LOC: DI 00:14
PROVIDERS: PCP Family Medicine; Visit Provider Internal Medicine Cardiovascular Disease
DX: Z95.2 Presence of prosthetic heart valve (principal); I08.3 Combined rheumatic disorders of mitral, aortic and tricuspid valves
CPT/HCPCS: 93306

== ENCOUNTER 2024-08-18 08:33 | Outpatient (CLI) | payer MEDICARE, SELFPAY ==
--- NOTE | 2024-08-18 06:00 | DI.RAD_ITS ---
Exam(s) XR PAIN CLINIC LUMBAR SP 2V EXAM: XR PAIN CLINIC LUMBAR SP 2V CLINICAL HISTORY: Dx: Lumbar Radiculopathy. TECHNIQUE: Fluoroscopy was provided for the referring physician for guidance with performing pain clinic injection procedure. COMPARISON: No exams were available for comparison FINDINGS: Please see procedure note for details. Fluoro time: 17.2 seconds RADIATION DOSE DELIVERED: Ka,r=4.5 mGy
[2024-08-18 08:15] VITALS: BP 132/79; PULSE 55; RESP 18; TEMP 36.4; O2SAT 98
[2024-08-18 09:28] VITALS: PULSE 60; PULSE 64; RESP 18; O2SAT 96
[2024-08-18 09:29] VITALS: BP 162/76; PULSE 53; PULSE 60; RESP 12; O2SAT 98
[2024-08-18 09:30] VITALS: PULSE 53; PULSE 59; RESP 16; O2SAT 99
[2024-08-18 09:31] VITALS: BP 150/71; PULSE 53; PULSE 60; RESP 12; O2SAT 99
--- NOTE | 2024-08-18 09:40 | PDOC.PAIN ---
Date of service: 08/18/24 Time of Service: 09:40 Pain Managment Procedure Note Procedure Note Procedure Note: PROCEDURE NOTE LUMBAR EPIDURAL STEROID INJECTION Date of Service: August 18, 2024 Patient:?Bandar De Souza? Provider: Je Carson DO, MPH Bandar De Souza has been referred to the [facility] for a lumbar epidural steroid injection. Pre-operative diagnosis: Lumbosacral Radiculopathy ICD-10 M54.16 Post-operative diagnosis: Same Pre-Procedure Pain: VAS= 7 /10 Comments: I previously evaluated him in the office. His symptoms are unchanged. Bandar was interviewed and the medical record was reviewed.? There were no medical, pharmacologic, radiographic or other structural contraindications to attempting fluoroscopically guided Lumbar epidural steroid injection.? Risks, potential side effects, indications, and potential benefits of the procedure were reviewed with Bandar.? Questions and concerns were addressed.? After it was clear that Bandar was fully informed about the procedure, the printed consent form was signed by the patient and myself.? Bandar was placed in the prone position on the fluoroscopy table and automated blood pressure cuff and pulse oximeter applied. The skin entry point for entering/approaching the epidural space for the lumbar epidural steroid injection was marked. Following thorough chlorhexadine preparation of the skin and draping and 1% lidocaine infiltration of the skin entry point and subcutaneous tissues, an 18 gauge Touhy needle was placed and advanced under fluoroscopic guidance and with loss of resistance technique into the L5-S1 epidural space. Needle tip placement and depth were aided and confirmed by fluoroscopy. There was no paresthesia or return of blood or CSF through the needle. 1 mls of Omnipaque 240 was injected with clear epidural spread confirmed with fluoroscopy. 80 mg of Depo-Medrol was? injected. This was followed by 1 ml of preservative-free normal saline to flush the steroid out of the needle. There was no unusual discomfort expressed by Bandar. The needle was withdrawn without difficulty. (49 mls of Omnipaque was wasted) Bandar was observed and was without hemodynamic, neurologic, or allergic reactions.? Fluoroscopic images were digitally archived. Bandar's vital signs were stable throughout the procedure and were as recorded in nursing records. Follow up plans and appointments were discussed with Bandar. Post procedure instruction was given as documented in nursing records and having met discharge criteria Bandar was discharged from the [facility]. COMMENTS: No apparent complications. Post-procedure pain: VAS= 3/10. Bandar to contact [facility] as needed. If at least 50% improvement in pain and/or function for at least 3 months is achieved, this procedure can be repeated. I personally performed this entire procedure. JE CARSON DO, MPH ABPMR-subspecialty board certification in Pain Medicine [facility] Coding Conscious Sedation used for procedure: No CPT Codes: Inj Spine L/S w/Imaging - 22399 ([id number] ~G) Additional Codes: Date of Service (23979) Date of service: 08/18/24 Diagnoses: Lumbar radiculopathy
[2024-08-18] MEDS: Omnipaque 240 MG/ML 50 ML BTL IJ (09:47)
[2024-08-18] MEDS: methylPREDNISolone ACETATE 80 MG/ML VIAL IJ (09:47)
[2024-08-18] MEDS: Epidural Tray 1 EACH MC (09:47)
== END 2024-08-18 08:34 | disposition home or self-care (01) ==
LOC: PC 08:33
PROVIDERS: PCP Family Medicine; Visit Provider Preventive Medicine Occupational Medicine
DX: M54.50 Low back pain, unspecified (principal); M54.16 Radiculopathy, lumbar region
CPT/HCPCS: 62323; 72100; J1010; Q9967

== ENCOUNTER 2024-10-10 13:54 | Outpatient (REF) | payer MEDICARE, SELFPAY ==
[2024-10-10 14:18] LABS: Abs Immature Grans 0.07 10^3/uL (0.0-0.06); HCT 26.8 % (40.0-50.0); HGB 8.4 g/dL (13.5-17.5); Immature Grans % 1.1 %; MCH 27.0 pg (27.0-33.0); MCHC 31.3 % (32.0-36.0); MCV 86 fL (80-95); MPV 9.0 fL (8.0-11.0); Platelet Count 188 10^3/uL (130-400); RBC 3.11 10^6/uL (4.36-5.78); RDW 16.0 % (11.8-14.1); RDW-SD 50.1 fL; WBC 6.49 10^3/uL (4.4-10.8)
[2024-10-10 14:30] LABS: ALT 22 U/L (16-63); AST 23 U/L (15-37); Albumin 3.0 g/dL (3.4-5.0); Alkaline Phosphatase 79 U/L (46-116); Anion Gap 5.7 mmol/L (3-11); BUN 28 mg/dL (7-18); Bilirubin, Total 0.6 mg/dL (0.2-1.0); C-Reactive Protein 16.85 mg/dL (<or=0.5); CO2 30.3 mmol/L (21.0-32.0); Calcium 8.1 mg/dL (8.5-10.1); Chloride 103 mmol/L (98-107); Estimated GFR 67.86 (mL/min/1.73m2); Glucose 106 mg/dL (74-106); Potassium 4.3 mmol/L (3.5-5.1); Sodium 139 mmol/L (136-145); Total Protein 6.0 g/dL (6.4-8.2)
== END 2024-10-10 13:55 | disposition home or self-care (01) ==
LOC: LBN 13:54
PROVIDERS: PCP Family Medicine; Visit Provider Student in an Organized Health Care Education/Training Program
DX: T84.53XA Infection and inflammatory reaction due to internal right knee prosthesis, initial encounter (principal); B96.89 Other specified bacterial agents as the cause of diseases classified elsewhere; Z79.2 Long term (current) use of antibiotics; Z45.2 Encounter for adjustment and management of vascular access device
CPT/HCPCS: 80053; 85025; 86140

== ENCOUNTER → 2025-01-26 00:18 | Outpatient (CLI) | payer MEDICARE, SELFPAY ==
--- NOTE | 2025-01-26 08:30 | DI.US_ITS ---
APPROVED REPORT EXAM: Comprehensive 2D, Doppler, and color-flow Echocardiogram Patient Location: Out-Patient [facility] [employer] Operator: Ree Emanuel RDCS (AE) Indications: Check AVR, Bioprosthetic AV Other Information Study Quality: Adequate Conclusion Normal left ventricular wall thickness and chamber size. Ejection fraction is 55%. Wall motion is normal Normal right ventricular size and function Moderately enlarged left atrium. Normal right atrial size There is a bioprosthetic aortic valve replacement. There is mild aortic regurgitation. Gradients across the prosthesis are elevated with a peak of 73, mean 43 mmHg. Calculated aortic valve area is 1 cm?? Mild mitral regurgitation Estimated right ventricular systolic pressure is 36 mmHg Ascending aorta measures 4.16 cm Wall motion Left Ventricle The left ventricle is normal size. The left ventricular systolic function is normal. The left ventricular ejection fraction is within the normal range. There is normal left ventricular wall thickness. There is normal LV segmental wall motion. There is no ventricular septal defect visualized. LVEF is 55%. Right Ventricle The right ventricle is normal size. The right ventricular systolic function is normal. Atria Left atrium is moderately dilated. The right atrium size is normal. The interatrial septum is intact with no evidence for an atrial septal defect. Aortic Valve Peak aortic valve gradient is 72.81_mmHg. Highest mean aortic valve gradient is 43.25_mmHg. Calculated AYESHA by the continuity equation is 1.0cm2. Mild aortic regurgitation. Bioprosthetic aortic valve is present. Mitral Valve The mitral valve is normal in structure. No evidence of mitral valve stenosis. Mild mitral regurgitation. Tricuspid Valve The tricuspid valve is normal in structure. There is no tricuspid valve stenosis. Trace tricuspid regurgitation. The RVSP is 36.5 mmHg. Pulmonic Valve The pulmonary valve is normal in structure. There is no pulmonic valvular stenosis. Trace to mild pulmonic regurgitation. Great Vessels The aortic root is normal in size. The ascending aorta is moderately dilated. Aortic arch is normal in caliber. IVC is normal in size and collapses >50% with inspiration. Pericardium There is no pericardial effusion. 2D Dimensions IVSD d PLAX 1.03 cm M: 0.6-1.2 Ao Root d 3.20 cm M: 3.1 - 3.7 LVPW d PLAX 1.00 cm M: 0.6 - 1.2 Ao Asc Diam d 4.16 cm M: 2.6 - 3.4 LVID d PLAX 5.00 cm M: 4.2 - 5.8 LVDs 3.60 cm M: 2.5 - 4.0 LV EF Teichholz 54.0 % FS 28.01 % LV EDV (Teich) 117.1 mL LV ESV (Teich) 53.9 mL M-Mode TAPSE 1.79 cm (M/F) >1.7 Auto EF LV EDV A4C 186.8 mL LV EDV A2C 157.2 mL LV EDV BP 173.9 mL LV ESV A4C 84.8 mL LV ESV A2C 69.2 mL LV ESV BP 76.6 mL LVEF(%) A4C 54.6 % LVEF(%) A2C 56.0 % LVEF(%) BP 56.0 % LV SV A4C 102.0 ml LV SV A2C 88.0 ml LV SV BP 97.3 ml LV CO A4C 7.0 L/min LV CO A2C 6.3 L/min LV CO BP 6.7 L/min HR A4C 68.44 BPM HR A2C 72.15 BPM LV EDV Index (BP) LA Volume LA Length A4C 5.9 cm LA Length A2C 5.6 cm LA Area A4C s 22.22 cm2 LA Area A2C s 24.71 cm2 LA Vol A4C A-L 71.10 mL LA Vol A2C A-L 92.08 mL LA Vol Biplane A-L 82.8 mL LA Vol/BSA A4C A-L LA Vol/BSA A2C A-L LA Vol/BSA BP A-L 45.8 mL/m2 LA Vol A4C MOD 65.3 mL LA Vol A2C MOD 86.0 mL LA Vol BP MOD 76.6 mL RA Volume RA Area A4C 16.9 cm2 RA ESV A4C (A-L) 48.8mL RA Vol/BSA A4C A-L RA Length A4C 5.0 cm RA ESV A4C (MOD) 45.7mL LV Diastology MV E' medial 0.057 (>0.07 m/s) MV E Vmax 0.96 (0.4-1.3 m/s) MV E/E' MED 17.01 (<14) MV A Vmax 1.00 (0.4-1.3 m/s) MV E' lateral 0.103 (>0.1 m/s) E/A Ratio 1.0 MV E/E' LAT 9.34 (<14) MV E' Average 0.080 m/s MV E/E'(average) 12.06 Aortic Valve AoV Vmax 4.24 m/s LVOT Vmax 1.41 m/s AoV Peak Grad 61.1 mmHg LVOT Peak Grad 8.0 mmHg AoV Area (Vmax) 1.04 cm2 LVOT VTI 0.338 m AoV VTI 0.916 m LVOT Mean Grad 4.8 mmHg AoV Mean Travis. 3.11 m/s LVOT SV 105.41 mL AoV Mean Grad 43.3 mmHg LVOT Diam s 1.95 cm AoV Area (VTI) 1.15 cm2 Velocity Ratio 0.33 AR Decel [place] 1.2m/sec2 AR DT 2873 msec AR PHT 833 msec AR Vmax 3.52 m/s Mitral Valve MV DT 175 (160-240 msec) MV Vmax TIPS 0.99 m/s MV Mean Grad 1.5 (<2mmHg) MV VTI 0.354 m Pulmonary Valve PV Vmax 1.28 (0.5-1.5 m/s) RVOT Vmax 0.80 m/s PV Peak Grad 6.6 mmHg RVOT Peak Gr. 2.6 mmHg PV Mean Travis 0.85 m/s RVOT VTI 0.167 m PV Mean Grad 3.4 mmHg RVOT Mean Gr. 1.4 mmHg Tricuspid Valve RA Pressure 3.00 mmHg TR Vmax 2.89 m/s TV S' 0.11 m/s TR Peak Grad 33.4 mmHg RVSP (TR) 36.5 mmHg
== END ==
PROVIDERS: PCP Family Medicine; Visit Provider Internal Medicine Cardiovascular Disease
DX: Z95.2 Presence of prosthetic heart valve (principal); I34.1 Nonrheumatic mitral (valve) prolapse
CPT/HCPCS: 93306

== ENCOUNTER → 2025-01-31 09:48 | Outpatient (BNVA) | payer MEDICARE, SELFPAY | PROVIDERS: PCP Family Medicine; Visit Provider Internal Medicine Cardiovascular Disease | DX: I35.0 Nonrheumatic aortic (valve) stenosis (principal) | CPT/HCPCS: 99214 ==